=== PATIENT | male | born 1975 | race American Indian/Alaskan Native ===

== ENCOUNTER 2017-12-03 16:21 | Emergency (ER) | payer OTHER ==
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
[2017-12-03] MEDS ORDERED: FLEXERIL PO ONE (21:07)
[2017-12-03] MEDS ORDERED: NORCO 7.5/325 PO ONE (21:07)
[2017-12-04 00:42] VITALS: BP 124/65
== END 2017-12-03 22:20 | disposition home or self-care (01) ==
LOC: ED 16:21
DX: S50.12XA Contusion of left forearm, initial encounter (principal); V49.49XA Driver injured in collision with other motor vehicles in traffic accident, initial encounter; Y93.89 Activity, other specified; Y92.89 Other specified places as the place of occurrence of the external cause; Y99.8 Other external cause status
CPT/HCPCS: 99282